=== PATIENT | female | born 1990 | race Caucasian/White ===

== ENCOUNTER 2021-10-06 10:56 | Inpatient (IN) ==
[2021-10-06] MEDS ORDERED: ONDANSETRON 4 MG/2 ML VIAL IV ONE (11:32)
[2021-10-06] MEDS ORDERED: MORPHINE 2 MG/1 ML SYRINGE IV ONE (11:32)
[2021-10-06 12:17] LABS: Basophils # 0.1 10*3/uL (0.0-0.2); Basophils % 0.4 % (0.0-0.8); Eosinophils # 0.1 10*3/uL (0.0-0.87); Eosinophils % 0.8 % (0.00-10.9); Hematocrit 30.7 VOL% (35.7-47.0); Hemoglobin 10.2 GM/DL (12.0-16.0); Immature Granulocytes % 0.6 %; Immature Granulocytes Absolute 0.09 #; Lymphocytes # 1.9 10*3/uL (1.4-4.0); Lymphocytes % 13.2 % (21.3-54.2); Mean Corpuscular HGB Conc 33.2 GM/DL (32-36); Mean Corpuscular Volume 104.4 FL (87-102); Mean Platelet Volume 10.6 FL (9.6-12.0); Monocytes % 6.9 % (1.7-12.7); Neutrophils % 78.1 % (38.7-73.9); Platelet Count 336 T/CUMM (130-400); Red Blood Count 2.94 MC/CUMM (3.8-5.5); Red Cell Distribution Width 14.9 % (9.3-17.3); White Blood Count 14.6 T/CUMM (4-12)
[2021-10-06 12:28] LABS: INR 1.3; PT Patient Result 13.7 SECS (10.5-12.0)
[2021-10-06 12:40] LABS: Alanine Aminotransferase 26 U/L (13-56); Albumin 1.7 G/DL (3.4-5.0); Alkaline Phosphatase 224 U/L (45-117); Aspartate Amino Transferase 95 U/L (0-37); Blood Urea Nitrogen 8 MG/DL (7-18); Calcium 8.3 MG/DL (8.5-10.1); Carbon Dioxide 33 MMOL/L (21-32); Chloride 94 MMOL/L (98-107); Glucose 116 MG/DL (74-106); Osmolality,Calculated 266.2 MOS/KG (273-304); Potassium 3.2 MMOL/L (3.5-5.1); Sodium 134 MMOL/L (136-145); Total Protein 5.5 G/DL (6.4-8.2)
[2021-10-06 13:34] LABS: Urine Appearance Clear (Clear); Urine Color Yellow (Yellow); Urine Specific Gravity > 1.030 (1.001-1.035); Urine pH 5.5 (4.5-8.0)
[2021-10-06 13:35] LABS: Bilirubin,Urine Small mg/dL (Negative); Blood, Urine Trace mg/dL (Negative); Glucose,Urine (UA) Negative (Negative); Ketones,Urine Negative (Negative); Nitrite,Urine Positive (Negative); Protein,Urine 30 mg/dL (Negative); Urine Urobilinogen 0.2 eU/dL (<2.0)
[2021-10-06 13:38] LABS: Hyaline Casts,Urine 3 /LPF (0-3); Mucus,Urine Many /LPF (Occasional); RBC,Urine 1 /HPF (0-4); Squamous Epithelial Cell,Urine Occasional /HPF (0-10)
[2021-10-06] MEDS ORDERED: cefTRIAXone 1,000 MG in SODIUM CHLORIDE 0.9% 100 ML IV STA (14:02)
[2021-10-06 14:16] LABS: Barbiturates Screen,Urine Negative (Negative); Benzodiazepines Screen,Urine Positive (Negative); Cannabinoid Screen,Urine Negative (Negative); Opiate Screen,Urine Positive (Negative); Phencyclidine Screen,Urine Negative (Negative)
[2021-10-06] MEDS ORDERED: cefTRIAXone 2,000 MG in SODIUM CHLORIDE 0.9% 100 ML IV SCH (14:30)
[2021-10-06 14:58] LABS: Glucose,Peritoneal Fluid 132 MG/DL; LDH,Peritoneal Fluid 58 U/L; Total Protein,Peritoneal Fluid 1.5 G/DL
[2021-10-06] MEDS ORDERED: ONDANSETRON 4 MG/2 ML VIAL IV PRN (14:59)
[2021-10-06] MEDS ORDERED: GLUCAGON 1 MG VIAL IM PRN (14:59)
[2021-10-06] MEDS ORDERED: hydrALAZINE 20 MG/1 ML VIAL IV PRN (14:59)
[2021-10-06] MEDS ORDERED: NICOTINE 21 MG/24 HR PATCH TRANSDERM PRN (14:59)
[2021-10-06] MEDS ORDERED: DEXTROSE 10% 250 ML BAG IV PRN (15:11)
[2021-10-06 15:22] LABS: Neutrophils,Peritoneal Fluid 40 %; RBC,Peritoneal Fluid 10 T/CUMM
[2021-10-06] MEDS ORDERED: cefTRIAXone 1,000 MG in SODIUM CHLORIDE 0.9% 100 ML IV ONE (16:46)
[2021-10-06] MEDS: FUROSEMIDE 40 MG/4 ML VIAL IV SCH (17:33)
[2021-10-06] MEDS: MORPHINE 2 MG/1 ML SYRINGE IV PRN ×2 (17:34→21:39)
[2021-10-06 17:41] LABS: Calcium 8.6 MG/DL (8.5-10.1); Osmolality,Calculated 267.1 MOS/KG (273-304); Potassium 3.7 MMOL/L (3.5-5.1)
[2021-10-06 18:21] LABS: Hepatitis B Core IgM Quant 0.13 Index; Hepatitis B Surface Ag Quant < 0.10 Index; Hepatitis B Surface Ag Result Non-Reactive (NonReactive); Hepatitis C Virus Ab Quant 0.06 Index; Hepatitis C Virus Ab Result Non-Reactive (NonReactive)
[2021-10-06] MEDS: SPIRONOLACTONE 25 MG TABLET PO SCH (21:01)
[2021-10-06] MEDS: traZODone 50 MG TABLET PO PRN (21:02)
[2021-10-07] MEDS: MORPHINE 2 MG/1 ML SYRINGE IV PRN ×8 (01:49→22:36)
[2021-10-07 05:57] LABS: Basophils # 0.1 10*3/uL (0.0-0.2); Basophils % 0.4 % (0.0-0.8); Eosinophils # 0.2 10*3/uL (0.0-0.87); Eosinophils % 1.6 % (0.00-10.9); Hematocrit 31.1 VOL% (35.7-47.0); Hemoglobin 10.1 GM/DL (12.0-16.0); Immature Granulocytes % 0.4 %; Immature Granulocytes Absolute 0.06 #; Mean Corpuscular HGB Conc 32.5 GM/DL (32-36); Mean Corpuscular Volume 105.4 FL (87-102); Mean Platelet Volume 10.8 FL (9.6-12.0); Monocytes % 7.6 % (1.7-12.7); Platelet Count 329 T/CUMM (130-400); Red Blood Count 2.95 MC/CUMM (3.8-5.5); White Blood Count 13.5 T/CUMM (4-12)
[2021-10-07 06:21] LABS: INR 1.2; PT Patient Result 13.3 SECS (10.5-12.0)
[2021-10-07 06:27] LABS: Folate 6.06 NG/ML (5.38-24.0)
[2021-10-07 06:30] LABS: Free T4 (Free Thyroxine) 1.74 NG/DL (0.76-1.46); Thyroid Stimulating Hormone 8.19 uIU/ml (0.358-3.74)
[2021-10-07] MEDS ORDERED: LEVOTHYROXINE 50 MCG TABLET PO SCH (06:30)
[2021-10-07 06:46] LABS: Albumin 1.6 G/DL (3.4-5.0); Bilirubin,Total 0.6 MG/DL (0.20-1.00); Calcium 8.3 MG/DL (8.5-10.1); Osmolality,Calculated 267.2 MOS/KG (273-304); Total Protein 5.8 G/DL (6.4-8.2)
[2021-10-07] MEDS: PANTOPRAZOLE 40 MG TABLET PO SCH (08:35)
[2021-10-07] MEDS: SPIRONOLACTONE 25 MG TABLET PO SCH (08:35)
[2021-10-07] MEDS: FUROSEMIDE 40 MG/4 ML VIAL IV SCH ×2 (08:36→16:44)
[2021-10-07] MEDS ORDERED: MORPHINE 2 MG/1 ML SYRINGE IV PRN (09:23)
[2021-10-07] MEDS ORDERED: FUROSEMIDE 40 MG/4 ML VIAL IV SCH (10:30)
[2021-10-07] MEDS: POTASSIUM CHLORIDE 20 MEQ TABLET PO SCH ×4 (11:33→20:30)
[2021-10-07 15:39] LABS: Urine Appearance Slightly Hazy (Clear); Urine Color Yellow (Yellow); Urine Specific Gravity 1.025 (1.001-1.035)
[2021-10-07 15:40] LABS: Bilirubin,Urine Small mg/dL (Negative); Blood, Urine Negative (Negative); Glucose,Urine (UA) Negative (Negative); Ketones,Urine Negative (Negative); Nitrite,Urine Negative (Negative); Protein,Urine Negative (Negative); Urine Urobilinogen 0.2 eU/dL (<2.0)
[2021-10-07 15:46] LABS: Mucus,Urine Few /LPF (Occasional); RBC,Urine 1 /HPF (0-4); Squamous Epithelial Cell,Urine Occasional /HPF (0-10)
[2021-10-07] MEDS ORDERED: POTASSIUM CHLORIDE 20 MEQ TABLET PO SCH (16:45)
[2021-10-07] MEDS: traZODone 50 MG TABLET PO PRN (20:30)
[2021-10-07] MEDS: SPIRONOLACTONE 50 MG TABLET PO SCH (20:30)
[2021-10-08] MEDS: MORPHINE 2 MG/1 ML SYRINGE IV PRN ×4 (00:46→07:17)
[2021-10-08 07:00] LABS: Calcium 8.5 MG/DL (8.5-10.1); Osmolality,Calculated 267.1 MOS/KG (273-304); Potassium 4.6 MMOL/L (3.5-5.1)
[2021-10-08] MEDS ORDERED: ALBUMIN 5% 25 GM/500 ML VIAL IV SCH (09:00)
[2021-10-08] MEDS ORDERED: ALBUMIN 25% 12.5 GM/50 ML VIAL IV ONE ×2 (09:15→09:20)
[2021-10-08 10:03] LABS: Neutrophils,Peritoneal Fluid 34 %
[2021-10-08 10:05] LABS: RBC,Peritoneal Fluid < 1 T/CUMM
[2021-10-08] MEDS: SPIRONOLACTONE 50 MG TABLET PO SCH ×2 (10:28→20:20)
[2021-10-08] MEDS: PANTOPRAZOLE 40 MG TABLET PO SCH (10:28)
[2021-10-08] MEDS: POTASSIUM CHLORIDE 20 MEQ TABLET PO SCH ×2 (10:29→20:19)
[2021-10-08] MEDS: FUROSEMIDE 40 MG/4 ML VIAL IV SCH (10:29)
[2021-10-08] MEDS: ALBUMIN 25% 25 GM/100 ML VIAL IV SCH (10:47)
[2021-10-08] MEDS: LACTATED RINGERS 1,000 ML IV SCH (13:18)
[2021-10-08] MEDS ORDERED: propofoL 200 MG/20 ML VIAL IV ONE ×2 (13:44→14:00)
[2021-10-08] MEDS ORDERED: LIDOCAINE 100 MG/5 ML SYRINGE ONE (13:44)
[2021-10-08] MEDS ORDERED: PHENYLEPHRINE 1 MG/10 ML SYRINGE IV ONE ×2 (13:57)
[2021-10-08] MEDS: FUROSEMIDE 40 MG TABLET PO SCH (17:09)
[2021-10-08] MEDS: traZODone 50 MG TABLET PO PRN (20:19)
[2021-10-09 05:46] LABS: Basophils # 0.1 10*3/uL (0.0-0.2); Basophils % 0.3 % (0.0-0.8); Eosinophils % 0.3 % (0.00-10.9); Hematocrit 34.2 VOL% (35.7-47.0); Hemoglobin 11.2 GM/DL (12.0-16.0); Immature Granulocytes % 0.6 %; Immature Granulocytes Absolute 0.09 #; Lymphocytes # 2.3 10*3/uL (1.4-4.0); Lymphocytes % 15.9 % (21.3-54.2); Mean Corpuscular HGB Conc 32.7 GM/DL (32-36); Mean Corpuscular Volume 106.9 FL (87-102); Mean Platelet Volume 10.2 FL (9.6-12.0); Monocytes % 7.2 % (1.7-12.7); Neutrophils % 75.7 % (38.7-73.9); Platelet Count 297 T/CUMM (130-400); Red Cell Distribution Width 15.3 % (9.3-17.3); White Blood Count 14.4 T/CUMM (4-12)
[2021-10-09 06:06] LABS: Calcium 8.6 MG/DL (8.5-10.1); Osmolality,Calculated 267.2 MOS/KG (273-304); Potassium 4.3 MMOL/L (3.5-5.1)
[2021-10-09] MEDS: FUROSEMIDE 40 MG TABLET PO SCH ×3 (08:17→15:02)
[2021-10-09] MEDS: SPIRONOLACTONE 50 MG TABLET PO SCH ×3 (08:17→21:14)
[2021-10-09] MEDS: PANTOPRAZOLE 40 MG TABLET PO SCH (08:18)
[2021-10-09] MEDS: POTASSIUM CHLORIDE 20 MEQ TABLET PO SCH ×2 (08:18→21:19)
[2021-10-09] MEDS: LACTATED RINGERS 1,000 ML IV SCH (09:34)
[2021-10-09] MEDS: ALBUMIN 25% 25 GM/100 ML VIAL IV SCH (11:02)
[2021-10-09] MEDS: CIPROFLOXACIN 250 MG TABLET PO SCH (14:06)
[2021-10-09] MEDS ORDERED: oxyCODONE IR 5 MG TABLET PO PRN (17:54)
[2021-10-09] MEDS ORDERED: GABAPENTIN 100 MG CAPSULE PO SCH (21:00)
[2021-10-09] MEDS: traZODone 50 MG TABLET PO PRN (21:13)
[2021-10-10] MEDS: MORPHINE 2 MG/1 ML SYRINGE IV PRN ×2 (00:31→05:45)
[2021-10-10 05:15] LABS: Basophils # 0.1 10*3/uL (0.0-0.2); Basophils % 0.5 % (0.0-0.8); Eosinophils # 0.2 10*3/uL (0.0-0.87); Eosinophils % 1.8 % (0.00-10.9); Hematocrit 32.7 VOL% (35.7-47.0); Hemoglobin 10.7 GM/DL (12.0-16.0); Immature Granulocytes % 0.5 %; Immature Granulocytes Absolute 0.06 #; Lymphocytes # 2.4 10*3/uL (1.4-4.0); Lymphocytes % 18.3 % (21.3-54.2); Mean Corpuscular HGB Conc 32.7 GM/DL (32-36); Mean Corpuscular Volume 105.5 FL (87-102); Mean Platelet Volume 10.6 FL (9.6-12.0); Monocytes # 1.1 10*3/uL (0.11-0.8); Monocytes % 8.1 % (1.7-12.7); Neutrophils % 70.8 % (38.7-73.9); Platelet Count 277 T/CUMM (130-400); Red Cell Distribution Width 15.1 % (9.3-17.3); White Blood Count 13.3 T/CUMM (4-12)
[2021-10-10 05:34] LABS: Calcium 8.6 MG/DL (8.5-10.1); Osmolality,Calculated 264.4 MOS/KG (273-304); Potassium 3.7 MMOL/L (3.5-5.1)
[2021-10-10] MEDS ORDERED: BUMETANIDE 1 MG TABLET PO SCH (08:00)
[2021-10-10 08:11] VITALS: BP 115/77
[2021-10-10] MEDS: CIPROFLOXACIN 250 MG TABLET PO SCH (08:51)
[2021-10-10] MEDS: PANTOPRAZOLE 40 MG TABLET PO SCH (08:51)
[2021-10-10] MEDS: SPIRONOLACTONE 50 MG TABLET PO SCH (08:51)
[2021-10-10] MEDS ORDERED: FUROSEMIDE 20 MG TABLET PO SCH (09:00)
[2021-10-10] MEDS: ALBUMIN 25% 25 GM/100 ML VIAL IV SCH (09:07)
== END 2021-10-10 11:49 | disposition home or self-care (01) | DRG 280 ==
LOC: EDUNIT# → EDBD → N.ED 10:56 → N.EDINP 14:59 → SUATTDRO 14:59 → N.3E 16:01
PROVIDERS: ADMIT Internal Medicine; ATTEND Internal Medicine